=== PATIENT | male | born 1970 | race Caucasian/White ===

== ENCOUNTER → 2017-02-06 | Outpatient (CLI) | payer OTHER ==
[~2017-02-06] MED LIST: ACYCLOVIR PO; AMOXICILLIN PO; AMOXICILLIN500 M1 PO; AMOXICILLIN875 MG PO; AURALGAN; BACTRIM DS TABL1 TA1 PO; BACTRIM DS TABL1 TA2 PO; BACTRIM DS TABL1 TAB; BACTRIM DS TABL1 TAB PO; BACTROBAN 2% TOP; BACTROBAN15 GM TOP; BACTROBAN22 GM TOP; BACTROBAN22 GM TP; CLINDAMYCIN HC300 MG PO; CORTISPORI10 ML SUSP OT; CORTISPORIN OIN15 GM AD; DIFLUCAN100 MG PO; DOXYCYCLINE HY100 M1 PO; ELIMITE60 G1 TP; FLEXERIL10 M1 PO; HYDROCODON-ACE1 EAC9 PO; IBUPROFEN800 MG PO; KEFLEX PO; KEFLEX500 M1 PO; KEFLEX500 MG PO; KETOPROFEN PO; LINEZOLID PO; LISINOPRIL PO; LISINOPRIL20 MG PO; LISINOPRIL5 MG PO; LORTAB 10-5001 EACH PO; LORTAB 7.5-5001 TAB PO; MEDROL PO; MORGIDOX100 MG PO; MOTRIN600 M2 PO; NAPROSYN500 MG PO; NEO/POLYMYXIN/H10 M1 OT; NO MEDICATIONS; NORCO1 TAB 10/3 PO; NORVASC PO; PERCOCET 10/31 UDTA1 PO; PERCOCET5/325 PO; PERCOCET7.5 PO; PREDNISONE PO; RIFAMPIN300 MG PO; TETRACYCLINE PO; TYLENOL #3 PO; ULTRAM PO; VICODIN 5/500 T1 TAB PO; VOLTAREN50 MG PO; ZOFRANODT PO; ZYVOX IV; ZYVOX600 MG PO
[2017-02-06 14:32] LABS: HEMATOCRIT 42.5 % (38.0-50.0); HEMOGLOBIN 14.5 gm/dL (13.0-16.0); MEAN CELL VOLUME 87.5 FL (83-96); MEAN CORPUSCULAR HEMOGLOBIN 29.9 PG (28-34); MEAN CORPUSCULAR HGB CONC 34.2 g/dL (30-36); RED BLOOD COUNT 4.85 X10e (3.90-5.60); RED CELL DISTRIBUTION WIDTH 14.3 % (11.0-15.5); WHITE BLOOD COUNT 9.7 X10e3 (4.0-10.5)
[2017-02-06 14:44] LABS: URINE APPEARANCE CLEAR; URINE BILIRUBIN NEG (NEG); URINE BLOOD NEG (NEG); URINE COLOR YELLOW; URINE GLUCOSE NEG (NORM); URINE KETONE NEG (NEG); URINE LEUKOCYTE ESTERASE NEG (NEG); URINE NITRATE NEG (NEG); URINE PH 6.5 (5-8); URINE PROTEIN NEG (NEG)
[2017-02-06 14:54] LABS: ALBUMIN SERUM 4.7 g/dL (3.5-5.0); BUN/CREATININE RATIO 24.44; CALCIUM SERUM 8.8 mg/dL (8.4-10.2); CREATININE SERUM 0.9 mg/dL (0.6-1.4); GLOM FILT RATE Estimated 103.5 mL/min (>60); POTASSIUM 3.5 mmol/L (3.5-5.1); PROTEIN TOTAL SERUM 7.5 g/dL (6.0-8.3)
[2017-02-06 15:19] LABS: MICRO INDICATED? NO
[2017-02-08 07:14] LABS: HA AB IGM (HEPPAN) Nonreactive (()); HB CORE AB IGM (HEPPAN) Nonreactive (Nonreactive); HB S AG (HEPPAN) Nonreactive (Nonreactive); HEP C AB (HEPPAN) Nonreactive (Nonreactive); HEP C AB SIGNAL TO CUTOFF 0.05 ratio (<1.00)
== END | disposition home or self-care (01) ==
LOC: SLAB 02-05 13:06
PROVIDERS: Psychiatry & Neurology Neurology
DX: F11.20 Opioid dependence, uncomplicated (principal)
CPT/HCPCS: 36415; 80053; 80074; 81003; 85027; 86592; 87806